=== PATIENT | male | born 1940 | race Caucasian/White ===

== ENCOUNTER 2022-08-25 07:17 | Day surgery (SDC) | payer OTHER ==
[2022-08-25 07:40] VITALS: BP 120/63
[2022-08-25] MEDS ORDERED: CHOL100046 PO (07:55)
[2022-08-25] MEDS ORDERED: OMEG-5 PO (07:55)
[2022-08-25] MEDS ORDERED: APIX5TAB3 PO (07:55)
[2022-08-25] MEDS ORDERED: HYDR25TA5 PO (07:55)
[2022-08-25] MEDS ORDERED: FINA5TAB11 PO (07:55)
[2022-08-25] MEDS ORDERED: ASCO-157 PO (07:55)
[2022-08-25] MEDS ORDERED: AMLO5TAB16 PO (07:55)
[2022-08-25] MEDS ORDERED: FLO0.4C PO (07:55)
[2022-08-25] MEDS ORDERED: CYAN500T46 PO (07:55)
[2022-08-25] MEDS ORDERED: LIDOcaine 1% 30ml preserv. free vial SQ STA (08:26)
[2022-08-25 09:21] VITALS: BP 135/75
== END 2022-08-25 09:41 | disposition home or self-care (01) ==
LOC: SSTAY O 07:17
PROVIDERS: ATTEND Radiology Vascular & Interventional Radiology
DX: D37.030 Neoplasm of uncertain behavior of the parotid salivary glands (principal); Z95.0 Presence of cardiac pacemaker; Z79.899 Other long term (current) drug therapy; Z98.890 Other specified postprocedural states
CPT/HCPCS: 10005; J7030; 38505